=== PATIENT | male | born 1980 | race Caucasian/White ===

== ENCOUNTER 2022-12-31 15:47 | Outpatient (AMB) | payer BC, SELFPAY ==
--- NOTE | 2022-12-31 16:05 | MHC.PC.OV ---
Vital Signs 12/31/22 16:07 Height 5 ft 6 in Weight 265 lb BMI 42.8 BP 120/90 H Blood Pressure Location Rt brachial Position Sitting Pulse 99 Pulse Source Pulse Oximeter Pulse Oximetry (%) 98 Oxygen Delivery Method Room Air Intake Visit Reasons: Annual PE/Re-est Care Allergies cat dander Allergy (Unknown, Unverified 12/31/22 16:07) ITCHY EYES,RUNNY NOSE ENVIROMENTAL Allergy (Unknown, Uncoded 12/31/22 16:07) ITCHY EYES,RUNNY NOSE Medication List - Last Reconciled 12/31/22 by SY Garcia No Known Home Meds Tobacco use date assessed: 12/31/22 Dental Screening Dental Screen Date: 12/31/22 Did you have a dental visit in the last 12 months?: No Did you have a dental problem in the last 6 months where you did not have access to dental care?: No Was dental information given to patient?: No HPI Annual PE/Re-est Care HPI Details pt is here for PE. psoriasis reported, will refer to dermatology. HTN: Will take his BP at home and will drop off values in approx 3 weeks. [facility] Medical History Deviated septum Social History Housing: House Patient Tobacco Use Status: Never used Tobacco e-Cigarette/Vaping Use: Never Used service: No Current occupational status: employed Current occupation: [employer] Cognitive needs: No Hearing needs: No Vision needs: No Questionnaire AUDIT C Alcohol Use Questionnaire (AUDIT-C) 1. How often do you have a drink containing alcohol?: Never 3. How often do you have six or more drinks on one occasion?: Never Total Score: 0 Score Reviewed/Action Taken: No Physical exam (Primary Care) Vital Signs: Last Vital Signs Pulse 99 12/31/22 16:07 BP 120/90 H 12/31/22 16:07 Pulse Ox 98 12/31/22 16:07 Oxygen Delivery Method Room Air 12/31/22 16:07 BMI result Body Mass Index 42.8 Tobacco/Smoking Status: Tobacco use Status Tobacco use date assessed 12/31/22 12/31/22 16:12 Patient Tobacco Use Status Never used Tobacco 12/31/22 16:12 e-Cigarette/Vaping Use Never Used 12/31/22 16:12 Const General: cooperative Nutritional Appearance: well nourished and obese Orientation/consciousness: patient oriented x3 HENMT Head: Yes normal to inspection, Yes normocephalic and Yes atraumatic Ears: TM normal on the right and TM normal on the left Eyes General: appearance normal, both eyes and all related structures Alignment and Position: alignment normal and position normal Neck Neck: Yes normal visual inspection and Yes no lymphadenopathy Resp Effort & Inspection: normal respiratory effort Auscultation: clear to auscultation bilaterally Cardio Rate: regular rate Rhythm: regular rhythm Heart sounds: S1 normal heart sound present, S2 normal heart sound present and no murmurs GI Other: umbilical hernia noted Palpation (GI): Soft to palpation and nontender Auscultation: normal bowel sounds Male General Exam: Yes normal external exam Penis: normal penis Scrotum: scrotum normal, testes descended bilaterally and no inguinal hernias Testes: no testicular mass Skin Other: psoriatic lesions to BLE, bilat elbows, scalp, ears Neuro General: patient oriented x3, moves all extremities, no focal motor deficits and deep tendon reflexes 2+ bilaterally Romberg Test: Negative Extrem Right lower extremity: no edema Left lower extremity: no edema Psych Affect: normal affect Attitude: cooperative Thought process: Normal thought process present Assessment and Plan Assessment & Plan (1) Physical exam: Code(s): Z00.00 - Encounter for general adult medical examination without abnormal findings (2) Psoriasis: Code(s): L40.9 - Psoriasis, unspecified Plan: cream sent (3) HTN (hypertension): Code(s): I10 - Essential (primary) hypertension Plan: pt will drop off values from home in the near future Orders: Orders Complete Blood Count Auto Diff Today Z00.00 - Encounter for general adult medical examination without abnormal findings TSH reflex Free T4 Today Z00.00 - Encounter for general adult medical examination without abnormal findings Comprehensive Manson. Panel Fast Today Z00.00 - Encounter for general adult medical examination without abnormal findings UA CC w/rflx Micro + Cult Today Z00.00 - Encounter for general adult medical examination without abnormal findings Lipid Panel Today Z00.00 - Encounter for general adult medical examination without abnormal findings Referrals Dermatology Referral L40.9 - Psoriasis, unspecified Medications: New betamethasone valerate 0.1% 1 appl topical DAILY PRN 45 grams 0RF skin irritation Coding Level of Care Code New Pt Prev Care 40-64y(22923) Diagnoses Physical exam Z00.00 Psoriasis L40.9 HTN (hypertension) I10
[2022-12-31 16:07] VITALS: BP 120/90; PULSE 99; O2SAT 98; BMI 42.8
== END 2022-12-31 16:50 | disposition home or self-care (01) ==
PROVIDERS: Visit Provider Nurse Practitioner Family
DX: Z00.00 Encounter for general adult medical examination without abnormal findings (principal); L40.9 Psoriasis, unspecified; I10 Essential (primary) hypertension
CPT/HCPCS: 99386

== ENCOUNTER 2023-03-30 10:51 | Outpatient (AMB) | payer SELFPAY ==
--- NOTE | 2023-03-30 11:03 | A.OFFVIS_ITS ---
Intake Vital Signs 03/30/23 11:09 Height 5 ft 6 in Weight 273 lb BMI 44.1 BP 163/90 H Blood Pressure Location Rt brachial Position Sitting Pulse 77 Intake Visit Reasons: umbilical hernia Intake Note: Patient referred for umbilical hernia. Present for 6m. Patient c/o: bulging. Denies pain. Copyman Required: No Accompanied by: Self / Same As Patient Allergies cat dander Allergy (Unknown, Unverified 03/30/23 11:08) ITCHY EYES,RUNNY NOSE ENVIROMENTAL Allergy (Unknown, Uncoded 03/30/23 11:08) ITCHY EYES,RUNNY NOSE HPI HPI Comments History of Present Illness Details Patient presents with approximate 6 month history of progressively enlarging umbilical hernia. Patient does significant heavy lifting at his place of employment and thinks this is where it initially happened. He presents here for further evaluation. He Is otherwise tolerating a diet, having regular bowel habits. He has no other GI issues or complaints. Chart was reviewed and patient evaluated [facility] Medical History (Updated 03/30/23 @ 11:08 by EMMANUELLE Lewis) Psoriasis Deviated septum Surgical History (Updated 03/30/23 @ 12:39 by Gasper Lovelace MD) Hx of heart surgery Social History Housing: House Patient Tobacco Use Status: Never used Tobacco e-Cigarette/Vaping Use: Never Used service: No Current occupational status: employed Current occupation: [employer] Cognitive needs: No Hearing needs: No Vision needs: No Physical Exam Vital Signs: Last Vital Signs Pulse 77 03/30/23 11:09 BP 163/90 H 03/30/23 11:09 BMI result Body Mass Index 44.1 Chest Other: Chest breath sounds bilaterally, HS 1 in 2 GI Other: Patient was examined both supine and standing with Valsalva. Abdomen corpulent, soft. Bilateral groin exam negative. Genitalia within normal limits. Approximate 4 cm incarcerated umbilical hernia. Assessment & Plan Assessment & Plan (1) Incarcerated umbilical hernia: Code(s): K42.0 - Umbilical hernia with obstruction, without gangrene Plan Risks, benefits, alternatives of open umbilical encourage hernia repair with mesh were reviewed with the patient and included but not limited to bleeding, infection, recurrence, numbness, pain, scarring, bowel injury or leak and the patient wished to proceed. All questions answered. Arrangements were made for this when it is convenient for him. Coding Level of Care Code New Pt Level 5 (30387) Diagnoses Incarcerated umbilical hernia K42.0
[2023-03-30 11:09] VITALS: BP 163/90; PULSE 77; BMI 44.1
== END 2023-03-30 12:01 | disposition home or self-care (01) ==
PROVIDERS: PCP Nurse Practitioner Family; Visit Provider Surgery
DX: K42.0 Umbilical hernia with obstruction, without gangrene (principal)
CPT/HCPCS: 99204

== ENCOUNTER → 2023-03-30 10:51 | Outpatient (BNVA) | payer BC, SELFPAY | PROVIDERS: Visit Provider Surgery ==

== ENCOUNTER 2023-05-21 06:00 | Day surgery (SDC) | payer BC, SELFPAY ==
[2023-05-18 16:22] VITALS: BMI 44.1
[2023-05-18 16:50] VITALS: BMI 43.6
--- NOTE | 2023-05-20 10:09 | HO.ANESPROP2 ---
Documented by User: Wendy Stallworth NP 05/20/23 10:12 HPI - Anesthesia Eval Consult details Narrative: 43yo M for Open Repair Incarcerated Umbilical Hernia with Mesh PONV, but anticipate MAC/TIVA PMFSH Active Problems Active Problems: All Active Problems (Updated 05/18/23 @ 16:49 by Shannen Solis RN) Incarcerated umbilical hernia (Acute) Umbilical hernia (Acute) HTN (hypertension) (Acute) Physical exam (Acute) Psoriasis (Acute) Past Medical History Medical History (Updated 05/18/23 @ 16:49 by Shannen Solis RN) PONV (postoperative nausea and vomiting) Environmental allergies Seasonal allergies Psoriasis Surgical History Surgical History (Updated 05/18/23 @ 16:49 by Shannen Solis RN) S/P correction of deviated nasal septum (~2008) Hx of cystoscopy (~2016) Hx of heart surgery Social History Social History (Updated 05/18/23 @ 16:47 by Shannen Solis RN) Household Members: Spouse Housing: House Are you a primary healthcare administration internship to a significant other at home: No Do you presently have visiting nurse or other home services: No Patient Tobacco Use Status: Never used Tobacco e-Cigarette/Vaping Use: Never Used Use of substances other than those prescribed or required for medical reasons: No Have you been hit, kicked, punched, or otherwise hurt by someone within the past year? If so, by whom?: No Are you DNR?: No Advance Directives: No Advance Directives Information Provided: Yes Advance Directives on File: No Recently lost weight without trying: No Nutrition Risks: No Nutritional Risk Poor oral hygiene: No service: No Current occupational status: employed Current occupation: [employer] Cognitive needs: No Hearing needs: No Vision needs: No Meds Allergies Allergy/AdvReac Type Severity Reaction Status Date / Time cat dander Allergy Unknown ITCHY Verified 05/21/23 06:45 EYES,RUNNY NOSE ENVIROMENTAL Allergy Unknown ITCHY Uncoded 03/30/23 11:08 EYES,RUNNY NOSE Home Medications Medication Instructions Recorded Confirmed Last Taken Type apremilast 30 mg tablet (Otezla) 30 mg PO BID 05/18/23 05/18/23 Unknown History Exam Height,Weight and Vital Signs: Height 5 ft 6 in Weight 122.47 kg Assessment and Plan Assessment Anesthesia Assessment: Chart Reviewed Documented by User: Kaylee Bolden MD 05/21/23 07:06 PMFSH Past Medical History Medical History (Updated 05/18/23 @ 16:49 by Shannen Solis RN) PONV (postoperative nausea and vomiting) Environmental allergies Seasonal allergies Psoriasis Family History Family history of problems with anesthesia: No Surgical History Surgical History (Updated 05/18/23 @ 16:49 by Shannen Solis RN) S/P correction of deviated nasal septum (~2008) Hx of cystoscopy (~2016) Hx of heart surgery History of Problems with Anesthesia: No Social History Social History (Updated 05/18/23 @ 16:47 by Shannen Solis RN) Household Members: Spouse Housing: House Are you a primary healthcare administration internship to a significant other at home: No Do you presently have visiting nurse or other home services: No Patient Tobacco Use Status: Never used Tobacco e-Cigarette/Vaping Use: Never Used Use of substances other than those prescribed or required for medical reasons: No Have you been hit, kicked, punched, or otherwise hurt by someone within the past year? If so, by whom?: No Are you DNR?: No Advance Directives: No Advance Directives Information Provided: Yes Advance Directives on File: No Recently lost weight without trying: No Nutrition Risks: No Nutritional Risk Poor oral hygiene: No service: No Current occupational status: employed Current occupation: [employer] Cognitive needs: No Hearing needs: No Vision needs: No Meds Allergies Allergy/AdvReac Type Severity Reaction Status Date / Time cat dander Allergy Unknown ITCHY Verified 05/21/23 06:45 EYES,RUNNY NOSE ENVIROMENTAL Allergy Unknown ITCHY Uncoded 03/30/23 11:08 EYES,RUNNY NOSE Home Medications Medication Instructions Recorded Confirmed Last Taken Type apremilast 30 mg tablet (Otezla) 30 mg PO BID 05/18/23 05/18/23 Unknown History Exam Airway Mallampati Class: II (missing a lot of teeth) TM Dist: >3cm Neck ROM: Full Heart: rrr Lungs: cta Assessment and Plan Assessment Anesthesia Assessment: Anesthesia Plan Discussed Final Anesthetic Review Family History of Problems with Anesthesia: No History of Problems with Anesthesia: No NPO: Yes ASA Class: III Final Preanesthetic Review: No Changes in Pt Med Stat, Meds/Allgs Chart Reviewed and Consent Obtained/Reviewed Patient Risk: Intermediate Procedure Risk: Intermediate Anesthetic Plan Anesthetic Plan: MAC: Disposition: Standard PACU
--- NOTE | 2023-05-20 13:37 | MHC.SHP ---
Pre-Procedural Eval Section A - 24 Hr Update-Section A only Date of Service: 05/20/23 The patient is an INPATIENT: No Changes since office visit: No Cold of Flu in the past 2 weeks, No New Medical Problems, No Changes in Medication and No Patient answered all questions Section B - Complete if H&P > 30 days Chief Complaint: Umbilical hernia with obstruction, without gangren Allergies: Allergies Allergy/AdvReac Type Severity Reaction Status Date / Time cat dander Allergy Unknown ITCHY Unverified 03/30/23 11:08 EYES,RUNNY NOSE ENVIROMENTAL Allergy Unknown ITCHY Uncoded 03/30/23 11:08 EYES,RUNNY NOSE Plan I have reviewed the history and physical and performed a pertinent physical examination on my patient. No changes have occurred unless specified. Time Spent With Patient Time: Total time managing care of this patient today ____ minutes.
[2023-05-21] VITALS (9 sets, daily range): BP systolic 120–155; BP diastolic 76–97; PULSE 77–89; RESP 16–20; TEMP 36.1–37.1; O2SAT 92–99
[2023-05-21] MEDS: Lactated Ringers 1,000 ML 100 ML IVCONT (06:45)
--- NOTE | 2023-05-21 08:18 | P.OP_ITS ---
Operative Note Operative Note Date of Service: 05/21/23 Narrative: Preoperative diagnosis: [] Large incarcerated umbilical hernia Postop diagnosis: [] The same Procedure [] open repair incarcerated umbilical hernia with Bard mesh Surgeon: [] [employer] Accounts Manager: [] Ortiz Type of Anesthesia: [] General Indication for surgery: [] Proximally 4 cm incarcerated umbilical hernia with omental contents. Very corpulent abdomen. Findings: [] P atient brought to the operating room, placed on operative table supine position, after an adequate level of general anesthesia was induced, the patient's abdomen was prepped and draped in usual sterile fashion. Using a supraumbilical curvilinear incision, this carried down through skin, subcutaneous tissue, where a massive multilobulated hernia sac was identified, and circumferentially dissected down to fascia. This was also dissected off the posterior aspect of the umbilicus. Sac was circumferentially dissected out at the fascial margin and the incarcerated omentum was clamped, cut, and tied using 2-0 Vicryl ties and amputated along with the sac and sent to pathology for specimen taken. Fascia margins were circumferentially cleared. The appropriately sized Bard mesh was placed in the defect and the superficial layer of the mesh was circumferentially sutured to the surrounding fascia using interrupted 0 Ethibond sutures. At completion, mesh was in good position with no gaps or tension. Wound was irrigated, secured for hemostasis, and closed in the following manner; posterior aspect of the umbilicus was tacked to the wound floor using interrupted 3-0 Vicryl sutures. Skin was closed using interrupted inverted dermal 3-0 Vicryl sutures followed by Steri-Strips and sterile dressings. Wounds infiltrated 0.5% Marcaine at completion. Sponge, needle, and instrument counts reported correct. Patient tolerated the procedure well and emerged from anesthesia stable condition. EBL minimal
--- NOTE | 2023-05-21 08:21 | MHC.SHP ---
Pre-Procedural Eval Section A - 24 Hr Update-Section A only Date of Service: 05/21/23 The patient is an INPATIENT: No Changes since office visit: No Cold of Flu in the past 2 weeks, No New Medical Problems, No Changes in Medication and No Patient answered all questions The patient has been examined within 24 hours of the surgical procedure. The History & Physical has been completed within 30 days and I have reviewed it.: Yes Section B - Complete if H&P > 30 days Chief Complaint: Umbilical hernia with obstruction, without gangren Details of Present Illness: No changes in H and P Allergies: Allergies Allergy/AdvReac Type Severity Reaction Status Date / Time cat dander Allergy Unknown ITCHY Verified 05/21/23 06:45 EYES,RUNNY NOSE ENVIROMENTAL Allergy Unknown ITCHY Uncoded 03/30/23 11:08 EYES,RUNNY NOSE Plan I have reviewed the history and physical and performed a pertinent physical examination on my patient. No changes have occurred unless specified. Time Spent With Patient Time: Total time managing care of this patient today ____ minutes.
[2023-05-21] MEDS: ondansetron HCL 4 MG/2 ML VIAL IVPUSH (09:09)
== END 2023-05-21 10:15 | disposition home or self-care (01) ==
PROVIDERS: PCP Nurse Practitioner Family; Visit Provider Surgery
PROC: (CPT 49594; principal; 2023-05-21 07:30)
DX: K42.0 Umbilical hernia with obstruction, without gangrene (principal); L40.9 Psoriasis, unspecified; J30.2 Other seasonal allergic rhinitis; Z79.899 Other long term (current) drug therapy
CPT/HCPCS: 49594; 88302; C1781; J0690; J1100; J1885; J2250; J2405; J2704; J2795; J3010

== ENCOUNTER → 2023-05-21 06:00 | Outpatient (BNV) | payer BC, SELFPAY | PROVIDERS: PCP Nurse Practitioner Family; Visit Provider Surgery | DX: K42.0 Umbilical hernia with obstruction, without gangrene (principal) | CPT/HCPCS: 49594 ==

== ENCOUNTER 2023-06-01 08:44 | Outpatient (AMB) | payer BC, SELFPAY ==
[2023-06-01 08:51] VITALS: BP 156/93; PULSE 84
--- NOTE | 2023-06-01 08:51 | A.OFFVIS_ITS ---
Intake Vital Signs 06/01/23 08:51 Weight 264 lb BP 156/93 H Blood Pressure Location Rt brachial Position Sitting Pulse 84 Intake Visit Reasons: S/p umbilical hernia repair Intake Note: Patient here s/p umbilical hernia repair. Reports incisions healing well. Patient c/o: tenderness, pinch sensation when changing position from sitting to standing. Only took rx pain meds for 3days. SX: 05-21-23. [employer] Set Up Mechanic Required: No Accompanied by: Self / Same As Patient Allergies cat dander Allergy (Unknown, Verified 06/01/23 08:53) ITCHY EYES,RUNNY NOSE ENVIROMENTAL Allergy (Unknown, Uncoded 06/01/23 08:53) ITCHY EYES,RUNNY NOSE HPI HPI Comments History of Present Illness Details Patient presents for follow-up status post umbilical hernia repair. He has no wound issues or complaints. He is tolerating his diet. He is having normal bowel habits. He has minimal incisional discomfort. [facility] Medical History PONV (postoperative nausea and vomiting) Environmental allergies Seasonal allergies Psoriasis Surgical History Incarcerated umbilical hernia (05/21/23) S/P correction of deviated nasal septum (~2008) Hx of cystoscopy (~2017) Hx of heart surgery Social History Household Members: Spouse Housing: House Are you a primary child care aide to a significant other at home: No Do you presently have visiting nurse or other home services: No Comment: counts correct Patient Tobacco Use Status: Never used Tobacco e-Cigarette/Vaping Use: Never Used service: No Current occupational status: employed Current occupation: [employer] Cognitive needs: No Hearing needs: No Vision needs: No Physical Exam Vital Signs: Last Vital Signs Pulse 84 06/01/23 08:51 BP 156/93 H 06/01/23 08:51 GI Other: Abdomen is soft, corpulent, benign. Wound clean dry and intact healing well Assessment & Plan Assessment & Plan (1) Status post hernia repair: Code(s): Z98.890 - Other specified postprocedural states; Z87.19 - Personal history of other diseases of the digestive system Plan Patient has been given local instructions, and he has no light duty at his place of work so he will be given a few weeks off and a note to that effect. He has [facility] papers which he can return to the office. Patient will otherwise follow-up p.r.n.. All Questions answered. Coding Level of Care Code Global (75324) Diagnoses Status post hernia repair Z98.890; Z87.19
== END 2023-06-01 09:05 | disposition home or self-care (01) ==
PROVIDERS: PCP Nurse Practitioner Family; Visit Provider Surgery
DX: Z98.890 Other specified postprocedural states (principal); Z87.19 Personal history of other diseases of the digestive system
CPT/HCPCS: 99212

== ENCOUNTER → 2023-06-01 08:44 | Outpatient (BNVA) | payer BC, SELFPAY | PROVIDERS: PCP Nurse Practitioner Family; Visit Provider Surgery ==

== ENCOUNTER 2024-01-18 12:00 | Outpatient (REF) | payer BC, SELFPAY ==
[2024-01-18 13:18] LABS: MANUAL DIFF FLAG NO
[2024-01-18 13:32] LABS: Basophils Absolute Auto 0.1 X10*3/uL (0.0-0.2); Basophils Percent Auto 0.5 % (0-2); Eosinophils Absolute Auto 0.2 X10*3/uL (0.0-0.4); Eosinophils Percent Auto 2.1 % (0-4); Hematocrit 49.4 % (42.0-52.0); Hemoglobin 17.2 g/dl (14.0-18.0); Imm Gran Abs Auto 0.09 X10*3/uL (0.00-0.03); Imm Gran Pct Auto 0.8 % (0.0-0.4); Lymphocytes Absolute Auto 3.3 X10*3/uL (1.2-4.9); Lymphocytes Percent Auto 29.7 % (20-40); Mean Corpuscular HGB Conc 34.8 g/dl (31.0-36.0); Mean Corpuscular Hemoglobin 29.9 pg (27.0-33.0); Mean Corpuscular Volume 85.9 fL (80.0-98.0); Mean Platelet Volume 9.9 fL (9.4-12.4); Monocytes Percent Auto 9.2 % (2-11); Neutrophils Absolute Auto 6.4 x10*3/uL (2.0-8.3); Neutrophils Percent Auto 57.7 % (45-73); Platelet Count 298 X10*3/uL (160-400); Red Blood Count 5.75 X10*6/uL (4.60-5.80); Red Cell Distribution Width 13.2 % (11.0-16.0); White Blood Count 11.1 X10*3/uL (4.8-10.8)
[2024-01-18 14:23] LABS: Alanine Aminotransferase 59 U/L (0-40); Albumin Level 4.3 g/dL (3.5-5.0); Alkaline Phosphatase 101 U/L (39-117); Anion Gap 9 (12-20); Aspartate Amino Transferase 39 U/L (5-37); Bilirubin Direct 0.2 mg/dL (0.0-0.5); Bilirubin Total 0.5 mg/dL (0.0-1.0); Blood Urea Nitrogen 10 mg/dL (9-16); Calcium 9.7 mg/dL (8.4-10.2); Carbon Dioxide 28 mmol/L (22-29); Chloride 106 mmol/L (96-108); Cholesterol 230 mg/dL (<200); Estimated Glomerular Filt Rate > 60; Glucose Random 77 mg/dL (60-115); HDL Cholesterol 43 mg/dL (>40); LDL Cholesterol Calculated 160 mg/dL (<100); Potassium 3.4 mmol/L (3.3-5.1); Sodium 140 mmol/L (135-145); Total Protein 8.3 g/dL (6.5-8.0); Triglycerides 137 mg/dL (<150)
[2024-01-19 04:02] LABS: HBc Num1 0.38 S/CO (0.00-0.79); Hepatitis B Core Antibody Nonreactive (Nonreactive); Hepatitis B Surface Antigen Negative (Negative); ~HepC Num1 0.22 S/CO (0.00-0.79); ~Hepatitis B Surface Antibody NONREACTIVE (Nonreactive); ~Hepatitis C Antibody Nonreactive (Nonreactive)
[2024-01-21 03:48] LABS: TS Negative Control Passed; TS Panel A 0; TS Panel B 0; TS Positive Control Passed; TSpotTB Negative (Negative)
== END 2024-01-18 12:01 | disposition home or self-care (01) ==
LOC: HO.HMGCLDS 12:00
PROVIDERS: PCP Nurse Practitioner Family; Visit Provider Physician Assistant Medical
DX: L40.0 Psoriasis vulgaris (principal); Z79.899 Other long term (current) drug therapy
CPT/HCPCS: 36415; 80048; 80061; 80076; 85025; 86481; 86704; 86706; 86803; 87340